=== PATIENT | female | born 1950 ===

== ENCOUNTER → 2021-07-03 | Outpatient (CLI) | payer MEDICARE ==
[~2021-07-03] MED LIST: ALPR.25 PO; Carisoprodol350 MG PO; Cymbalta20 MG PO; PRAV20 PO; PROTONIX40 M1 PO; TRAZ50 PO
== END | disposition home or self-care (01) ==
LOC: LAB 09:30 → LAB SHORT 09:30
DX: R39.15 Urgency of urination (principal); R35.0 Frequency of micturition
CPT/HCPCS: 87077; 87086; 87186

== ENCOUNTER 2021-07-04 14:03 | Inpatient (IN) | payer MEDICARE ==
[~2021-07-04] VITALS: Ht 165.1 cm; Wt 66.7 kg
[2021-07-04 14:32] LABS: BASOPHILS ABSOLUTE AUTO 0.04 K/mm3 (0.00-0.23); BASOPHILS PERCENT AUTO 1 % (0-2); EOSINOPHILS ABSOLUTE AUTO 0.03 K/mm3 (0.00-0.68); EOSINOPHILS PERCENT AUTO 0 % (0-6); Hematocrit 21.3 % (33.0-51.0); Hemoglobin 6.9 g/dL (11.5-16.0); IMMATURE GRAN ABSOLUTE AUTO 0.07 K/mm3 (0.00-0.10); IMMATURE GRAN PERCENT AUTO 1 % (0-1); LYMPHOCYTES ABSOLUTE AUTO 2.18 K/mm3 (0.84-5.20); LYMPHOCYTES PERCENT AUTO 25 % (21-46); MONOCYTES ABSOLUTE AUTO 0.69 K/mm3 (0.16-1.47); MONOCYTES PERCENT AUTO 8 % (4-13); Mean Corpuscular HGB 28.5 pg (26.0-34.0); Mean Corpuscular HGB Conc 32.4 g/dL (31.5-36.5); Mean Corpuscular Volume 88 fL (80-100); Mean Platelet Volume 9.2 fL (9.1-12.4); NEUTROPHILS ABSOLUTE AUTO 5.86 K/mm3 (1.96-9.15); NEUTROPHILS PERCENT AUTO 66 % (41-73); Platelet Count 286 K/mm3 (150-400); RDW Coefficient Variation 13.1 % (11.7-14.2); Red Blood Cell Count 2.42 M/mm3 (3.80-5.20); White Blood Cell Count 8.87 K/mm3 (4.00-11.30)
[2021-07-04 14:50] LABS: Alanine Aminotransfer (ALT/SGP 23 U/L (12-78); Albumin, Blood 3.4 g/dL (3.4-5.0); Albumin/Globulin Ratio 1.2 (0.8-1.8); Alk Phos 69 U/L (50-136); Anion Gap 8 mmol/L (6-16); Aspartate Aminotrans (AST/SGOT 11 U/L (12-37); Bilirubin, Total 0.1 mg/dL (0.1-1.0); Blood Urea Nitrogen 21 mg/dL (8-24); Bun/Creatinine Ratio 29.7 (12.0-20.0); CO2, Blood 22 mmol/L (21-32); Calcium, Blood 8.5 mg/dL (8.5-10.1); Chloride, Blood 103 mmol/L (98-108); Creatinine, Blood 0.71 mg/dL (0.40-1.00); Globulin, Blood 2.8 g/dL (2.2-4.0); Glomerular Filtration Rate >60 (60-); Glucose, Blood 114 mg/dL (70-99); Potassium, Blood 3.7 mmol/L (3.5-5.5); Sodium, Blood 133 mmol/L (136-145); Total Protein, Blood 6.2 g/dL (6.4-8.2)
[2021-07-04] MEDS ORDERED: Cymbalta20 MG PO (17:39)
[2021-07-04] MEDS ORDERED: TRAZ50 PO (17:40)
[2021-07-04] MEDS ORDERED: PRAV20 PO (17:40)
[2021-07-04] MEDS ORDERED: ALPR.25 PO (17:41)
[2021-07-04] MEDS ORDERED: Carisoprodol350 MG PO (17:42)
--- NOTE | 2021-07-04 18:51 | NUR ---
PT ADMITTED TO ICU AT 1845 FROM ER FOR GI BLEED. PT AWAKE, ALERT, PLEASANT. DENIES C/O PAIN, NAUSEA. ONE UNIT PRBC'S FINISHED UPON ADMIT. PT ABLE TO STAND AND TRANSFER TO ICU BED. PT DENIED DIZZINESS. BP STABLE 146/85. HEART RATE 82. NO ACTIVE SIGNS OF ACUTE BLEEDING. DR RAMÍREZ CALLED AND GIVEN UPDATE. ADDITIONAL NS BOLUS DC'D BP IS STABLE. DR DEVI CALLED AND GIVEN UPDATE; HE WILL BE BY TO SEE PT SHORTLY. PT LAST ATE A "SMALL MEAL" AT 1230, AND WATER AT 1400. WILL KEEP PT NPO FOR NOW FOR POSSIBLE SCOPE TONIGHT.
[2021-07-04 19:48] LABS: Hematocrit 24.2 % (33.0-51.0); Hemoglobin 8.1 g/dL (11.5-16.0)
[2021-07-04 22:40] LABS: Influenza A, PCR NEGATIVE (NEGATIVE); Influenza B, PCR NEGATIVE (NEGATIVE); Resp Syncytial Virus, PCR NEGATIVE (NEGATIVE); SARS-Cov-2 (COVID-19) PCR, MMC NEGATIVE (NEGATIVE)
[2021-07-05 00:11] LABS: Hematocrit 22.9 % (33.0-51.0); Hemoglobin 7.7 g/dL (11.5-16.0)
--- NOTE | 2021-07-05 01:29 | NUR ---
UPDATE DR. DEVI AT BEDSIDE AT BEGINNING OF SHIFT DISCUSSING PROCEDURE WITH PT. PLAN FOR PT TO HAVE CLEAR LIQUIDS AT [address] DEVI INFORMED OF RAISE IN HBG TO 8.1. PROTONIX GTT STARTED PER PHYSICIAN ORDER. WILL CONT TO MONITOR
[2021-07-05 03:42] LABS: Hematocrit 22.2 % (33.0-51.0); Hemoglobin 7.2 g/dL (11.5-16.0); Mean Corpuscular HGB 28.7 pg (26.0-34.0); Mean Corpuscular HGB Conc 32.4 g/dL (31.5-36.5); Mean Corpuscular Volume 88 fL (80-100); Mean Platelet Volume 9.6 fL (9.1-12.4); Platelet Count 207 K/mm3 (150-400); RDW Coefficient Variation 13.4 % (11.7-14.2); Red Blood Cell Count 2.51 M/mm3 (3.80-5.20); White Blood Cell Count 5.74 K/mm3 (4.00-11.30)
[2021-07-05 04:02] LABS: Anion Gap 4 mmol/L (6-16); Blood Urea Nitrogen 12 mg/dL (8-24); Bun/Creatinine Ratio 18.4 (12.0-20.0); CO2, Blood 25 mmol/L (21-32); Calcium, Blood 7.7 mg/dL (8.5-10.1); Chloride, Blood 108 mmol/L (98-108); Creatinine, Blood 0.65 mg/dL (0.40-1.00); Glomerular Filtration Rate >60 (60-); Glucose, Blood 92 mg/dL (70-99); Potassium, Blood 3.9 mmol/L (3.5-5.5); Sodium, Blood 137 mmol/L (136-145)
--- NOTE | 2021-07-05 06:26 | NUR ---
SHIFT SUMMARY PT ALERT AND ORIENTED X 4. HR STABLE. BP STABLE,MAP ABOVE 65. OXYGEN SATURATION MAINTAINED ABOVE 92% ON RA. PT SBA TO COMMODE, ABLE TO TURN SELF IN BED NEEDED. PROTONIX GTT, SEE EMAR. NO CP OR PRESSURE. PHYSICIAN NOTIFIED OF HBG DROP TO 7.2 NO NEW ORDERS. PT REFUSING SCD'S AT THIS TIME. PT STATES SHE WEARS CPAP AT HOME BUT REFUSES CPAP WHILE IN HOSPITAL. PLAN FOR PT TO GO TO DAY SURGERY AT 0730, REPORT GIVEN TO DAY SURGERY RN. CALL LIGHT WITHIN REACH. WILL CONT TO MONITOR UNTIL REPORT GIVEN TO DAYSHIFT RN.
--- NOTE | 2021-07-05 07:31 | NUR ---
07/05/21 0731 Alison Perry History, Chart, Medications and Allergies reviewed before start of procedure. Patient confirms NPO status and agrees with scheduled surgery. 3-LEAD EKG REVIEWED WITH PHYSICIAN PRIOR TO START OF PROCEDURE. MONITOR INTACT WITH CONTINUOUS PULSE OXIMETRY AND INTERMITTENT BP. PATIENT DETERMINED TO BE ASA APPROPRIATE FOR PROPOFOL SEDATION PRIOR TO START OF PROCEDURE BY DR. DEVI. Bite Block Placed.
--- NOTE | 2021-07-05 08:00 | NUR ---
Day surgery staff at bedside, preparing for EGD. VSS. at this time. Patient denies needs. WCTM.
--- NOTE | 2021-07-05 09:30 | NUR ---
Initial Assessment: Patient is resting on her left side, she is a little groggy from the EGD. EGD was done with ansethesia due to some hypotension after propofol and versed given. Blood pressures are stable now,111/73. Per the EGD patient has an ulcer that she was previously aware of, but is not actively bleeding. She also has Barretts esophagus, Dr. gramajo discussed findings with patient and treatment options. Patient is awake, alert and oriented. She denies pain or N/V at this time.HRR, SR with PVCs in the 90s. BP listed above. BT+. PPP. VSS. Patient given some yogurt-per Dr. Gramajo patient is able to eat a regular diet and may go home. Dr. Weaver notified patient is cleared from a GI standpoint, awaiting 10 am H/H results to discharge. Patient denies other needs at this time. Call light in reach, [facility].
[2021-07-05 10:23] LABS: Hematocrit 24.3 % (33.0-51.0); Hemoglobin 7.9 g/dL (11.5-16.0)
[2021-07-05] MEDS ORDERED: PROTONIX40 M1 PO (10:57)
--- NOTE | 2021-07-05 11:00 | NUR ---
PATIENT VERBALIZED UNDERSTANDING OF DISCHARGE INSTRUCTIONS. [facility] CALLED INTO [facility]. IVS DC'D CATH INTACT. PATIENT TO HOME VIA WC WITH SISTER.
== END 2021-07-05 11:46 | disposition home or self-care (01) | DRG 378 ==
LOC: ER 14:03 → ICUW 16:06 → ICUE 16:06
PROVIDERS: Internal Medicine; Internal Medicine Gastroenterology; Physician Assistant; ADMIT Internal Medicine
PROC: 30233N1 Transfusion of Nonautologous Red Blood Cells into Peripheral Vein, Percutaneous Approach (ICD-10-PCS; 2021-07-04)
PROC: 0DB68ZX Excision of Stomach, Via Natural or Artificial Opening Endoscopic, Diagnostic (ICD-10-PCS; principal; 2021-07-05 07:30)
DX: K25.4 Chronic or unspecified gastric ulcer with hemorrhage (principal); D62 Acute posthemorrhagic anemia; E87.1 Hypo-osmolality and hyponatremia; I95.9 Hypotension, unspecified; K22.70 Barrett's esophagus without dysplasia; Z20.822 Contact with and (suspected) exposure to COVID-19; M19.90 Unspecified osteoarthritis, unspecified site; E78.5 Hyperlipidemia, unspecified; F32.A Depression, unspecified; E11.42 Type 2 diabetes mellitus with diabetic polyneuropathy; Z79.899 Other long term (current) drug therapy
CPT/HCPCS: 0241U; 36415; 36430; 80048; 80053; 82272; 82947; 85014; 85018; 85025; 85027; 86850; 86900; 86901; 86923; 88305; 88342; 93005; 93010; 96374; 99285-25; A9270; C9113; J0171; J1430; J2001; J2250; J2370; J2704; J3010; J7030; J7120; P9016

== ENCOUNTER → 2021-07-04 | Outpatient (CLI) | payer MEDICARE ==
[2021-07-04 11:39] LABS: BASOPHILS ABSOLUTE AUTO 0.04 K/mm3 (0.00-0.23); BASOPHILS PERCENT AUTO 1 % (0-2); EOSINOPHILS ABSOLUTE AUTO 0.01 K/mm3 (0.00-0.68); EOSINOPHILS PERCENT AUTO 0 % (0-6); Hemoglobin 6.8 g/dL (11.5-16.0); IMMATURE GRAN ABSOLUTE AUTO 0.04 K/mm3 (0.00-0.10); IMMATURE GRAN PERCENT AUTO 1 % (0-1); LYMPHOCYTES ABSOLUTE AUTO 1.68 K/mm3 (0.84-5.20); LYMPHOCYTES PERCENT AUTO 26 % (21-46); MONOCYTES ABSOLUTE AUTO 0.43 K/mm3 (0.16-1.47); MONOCYTES PERCENT AUTO 7 % (4-13); Mean Corpuscular HGB 28.5 pg (26.0-34.0); Mean Corpuscular HGB Conc 32.4 g/dL (31.5-36.5); Mean Corpuscular Volume 88 fL (80-100); Mean Platelet Volume 9.7 fL (9.1-12.4); NEUTROPHILS ABSOLUTE AUTO 4.18 K/mm3 (1.96-9.15); NEUTROPHILS PERCENT AUTO 66 % (41-73); Platelet Count 255 K/mm3 (150-400); RDW Coefficient Variation 12.9 % (11.7-14.2); RDW Standard Deviation 41.1 fL (35.1-46.3); Red Blood Cell Count 2.39 M/mm3 (3.80-5.20); White Blood Cell Count 6.38 K/mm3 (4.00-11.30)
[2021-07-04 12:03] LABS: Alanine Aminotransfer (ALT/SGP 20 U/L (12-78); Albumin, Blood 3.1 g/dL (3.4-5.0); Albumin/Globulin Ratio 1.1 (0.8-1.8); Alk Phos 64 U/L (50-136); Anion Gap 6 mmol/L (6-16); Aspartate Aminotrans (AST/SGOT 8 U/L (12-37); Bilirubin, Total 0.1 mg/dL (0.1-1.0); Blood Urea Nitrogen 20 mg/dL (8-24); Bun/Creatinine Ratio 29.7 (12.0-20.0); CO2, Blood 25 mmol/L (21-32); Calcium, Blood 8.3 mg/dL (8.5-10.1); Chloride, Blood 103 mmol/L (98-108); Creatinine, Blood 0.67 mg/dL (0.40-1.00); Ferritin, Serum 26 ng/mL (8-252); Globulin, Blood 2.9 g/dL (2.2-4.0); Glomerular Filtration Rate >60 (60-); Glucose, Blood 131 mg/dL (70-99); Iron Serum 73 ug/dL (50-170); Magnesium, Blood 1.9 mg/dL (1.6-2.4); Percent Saturation 22.9 % (15.0-50.0); Potassium, Blood 3.4 mmol/L (3.5-5.5); Sodium, Blood 134 mmol/L (136-145); Total Iron Binding Capacity 319 ug/dL (250-450)
== END | disposition home or self-care (01) ==
LOC: LAB SHORT 10:29
PROVIDERS: Nurse Practitioner Family
DX: D64.9 Anemia, unspecified (principal)
CPT/HCPCS: 80053; 82728; 83540; 83550; 83735; 85025

== ENCOUNTER → 2021-07-11 | Outpatient (CLI) | payer MEDICARE ==
[2021-07-11 13:12] LABS: BASOPHILS ABSOLUTE AUTO 0.03 K/mm3 (0.00-0.23); BASOPHILS PERCENT AUTO 1 % (0-2); EOSINOPHILS ABSOLUTE AUTO 0.05 K/mm3 (0.00-0.68); EOSINOPHILS PERCENT AUTO 1 % (0-6); Hematocrit 24.7 % (33.0-51.0); IMMATURE GRAN ABSOLUTE AUTO 0.02 K/mm3 (0.00-0.10); IMMATURE GRAN PERCENT AUTO 0 % (0-1); LYMPHOCYTES ABSOLUTE AUTO 1.36 K/mm3 (0.84-5.20); LYMPHOCYTES PERCENT AUTO 26 % (21-46); MONOCYTES ABSOLUTE AUTO 0.48 K/mm3 (0.16-1.47); MONOCYTES PERCENT AUTO 9 % (4-13); Mean Corpuscular HGB 29.1 pg (26.0-34.0); Mean Corpuscular HGB Conc 32.4 g/dL (31.5-36.5); Mean Corpuscular Volume 90 fL (80-100); Mean Platelet Volume 8.9 fL (9.1-12.4); NEUTROPHILS ABSOLUTE AUTO 3.28 K/mm3 (1.96-9.15); NEUTROPHILS PERCENT AUTO 63 % (41-73); Platelet Count 432 K/mm3 (150-400); RDW Coefficient Variation 14.4 % (11.7-14.2); RDW Standard Deviation 46.5 fL (35.1-46.3); Red Blood Cell Count 2.75 M/mm3 (3.80-5.20); White Blood Cell Count 5.22 K/mm3 (4.00-11.30)
== END | disposition home or self-care (01) ==
LOC: LAB 12:30 → LAB SHORT 12:30
PROVIDERS: Physician Assistant
DX: D50.9 Iron deficiency anemia, unspecified (principal)
CPT/HCPCS: 85025